=== PATIENT | female | born 1960 | race Caucasian/White ===

== ENCOUNTER → 2020-09-16 | Outpatient (CLI) | payer OTHER ==
[~2020-09-16] MED LIST: ALBUTEROL INH INH; ASPIRIN EC81 MG PO; ATORVASTATIN CA10 MG PO; BREO ELLIPTA 21 EACH INH; CARTIA XT180 MG PO; FLONASE ALLER15.8 ML; HYDROCODON-ACE1 EAC4 PO; LEVOFLOXACIN500 MG PO; LORATADINE10 MG PO; MONTELUKAST SOD10 MG PO; ONDANSETRON HCL4 MG PO; PROTONIX40 MG PO; SOTALOL80 MG PO; VENTOLIN INH INH; VIT D PO
[2020-09-16 10:45] LABS: HEMOGLOBIN 14.6 gm/dl (12.3-15.3); RED BLOOD COUNT 5.03 M/UL (4.00-5.10); WHITE BLOOD COUNT 14.9 K/UL (4.5-11.0)
[2020-09-16 11:05] LABS: BUN/CREATININE RATIO 24 (0-10)
== END ==
LOC: LAB 09:52
PROVIDERS: Internal Medicine Cardiovascular Disease
DX: Z45.010 Encounter for checking and testing of cardiac pacemaker pulse generator [battery] (principal); I49.5 Sick sinus syndrome; I48.0 Paroxysmal atrial fibrillation; R91.8 Other nonspecific abnormal finding of lung field
CPT/HCPCS: 36415; 71046; 80048; 85025

== ENCOUNTER → 2020-09-18 | Outpatient (CLI) | payer OTHER | END | disposition home or self-care (01) | LOC: CATH 06:56 | DX: Z45.010 Encounter for checking and testing of cardiac pacemaker pulse generator [battery] (principal); I49.5 Sick sinus syndrome; I48.0 Paroxysmal atrial fibrillation; I27.20 Pulmonary hypertension, unspecified; J45.40 Moderate persistent asthma, uncomplicated; K21.9 Gastro-esophageal reflux disease without esophagitis; Z87.891 Personal history of nicotine dependence; Z88.8 Allergy status to other drugs, medicaments and biological substances; Z79.82 Long term (current) use of aspirin; Z79.899 Other long term (current) drug therapy | CPT/HCPCS: 33213; 99152; 99153; C1785; J1200; J2250; J3010; J3370; J7040; J7050 ==